=== PATIENT | female | born 1960 | race Caucasian/White ===

== ENCOUNTER → 2016-11-07 | Outpatient (CLI) | payer MEDICARE, MEDICAID | END | disposition home or self-care (01) | LOC: PCVCCLINIC 14:07 | PROVIDERS: ATTEND Internal Medicine | DX: E11.9 Type 2 diabetes mellitus without complications (principal); E66.9 Obesity, unspecified; J44.9 Chronic obstructive pulmonary disease, unspecified; Z88.0 Allergy status to penicillin; Z88.1 Allergy status to other antibiotic agents; Z88.6 Allergy status to analgesic agent; Z88.8 Allergy status to other drugs, medicaments and biological substances; Z79.899 Other long term (current) drug therapy; Z87.891 Personal history of nicotine dependence | CPT/HCPCS: 93005; G0463 ==

== ENCOUNTER → 2017-01-31 | Outpatient (CLI) | payer MEDICARE, MEDICAID ==
[~2017-01-31] MED LIST: IPRATRPIUM/ALBUTEROL 0.5/2.5MG 3 ML NEBU. ONE; REGADENOSON 0.4 MG/5 ML DISP.SYRIN. IV ONE
--- NOTE | 2017-01-31 15:29 | PCVCIMAG ---
APPROVED REPORT Study performed: 01/31/2017 12:49:35 EXAM: Comprehensive 2D, Doppler, and color-flow Echocardiogram Patient Location: Echo lab Status: routine BSA: 2.38 HR: 70 bpmBP: 132/78 mmHg Rhythm: NSR Other Information Study Quality: Adequate Risk Factors: Cardiac Risk Factors: DM Indications Palpitations Chest Pain 2D Dimensions LVEF(%): 63.53 (>50%) IVSd: 12.85 (7-11mm)LVOT Diam: 19.61 (18-24mm) LVDd: 59.85 mm PWd: 13.27 (7-11mm)Ascending Ao: 31.46 (22-36mm) LVDs: 38.84 (25-40mm) Left Atrium: 49.82 (27-40mm) LV Single Plane 4CH: 65.81 % LV Single Plane 2CH: 60.96 %Pichardo's LVEF: 63.38 % Biplane EF: 63.2 % Volumes Left Atrial Volume (Systole) Single Plane 4CH: 55.81 mLSingle Plane 2CH: 69.11 mL LA ESV Index: 30.00 mL/m2 Aortic Valve AoV Peak Joe.: 2.43 m/s AO Peak Gr.: 24.25 mmHgLVOT Max P.63 mmHg AO Mean Gr.: 11.25 mmHgLVOT Mean P.40 mmHg AO V2 Mean: 1.60 m/sLVOT Max V: 1.29 m/s AO V2 VTI: 47.13 cm GREGG (VTI): 1.94 hs3CRQB V1 VTI: 30.28 cm GREGG Vmax: 1.60 cm2 AI Vmax: 3.37 m/s AI Weston: 1.43 m/s2 AI PHT: 697.98 ms Mitral Valve E/A Ratio: 1.2 MV Decel. Time: 290.69 ms MV E Max Joe.: 1.15 m/s MV A Joe.: 0.97 m/s MV PHT: 84.30 ms IVRT: 62.28 ms TDI E/Lateral E': 10.45E/Medial E': 19.17 Medial E' Joe.: 0.06 m/s Lateral E' Joe.: 0.11 m/s Pulmonary Valve PV Peak Joe.: 1.18 m/sPV Peak Gr.: 5.60 mmHg Pulmonary Vein P Vein S: 0.56 m/sP Vein A: 0.26 m/s P Vein D: 0.53 m/sP Vein A Dur.: 124.6 msec P Vein S/D Ratio: 1.06 Tricuspid Valve TR Peak Joe.: 2.87 m/s TR Peak Gr.: 32.96 mmHg Left Ventricle Left ventricle is mildly dilated. There is normal LV segmental wall motion. Mild concentric left ventricular hypertrophy. Left ventricular systolic function is normal. The left ventricular ejection fraction is within the normal range. LVEF is 60-65%. Left ventricular filling pattern is normal for age. Right Ventricle Right ventricle is dilated. The right ventricular systolic function is normal. Atria The left atrium size is normal. Right atrium is borderline dilated. Aortic Valve The aortic valve is normal in structure. Mild aortic regurgitation. Mild aortic stenosis. GREGG 1.6 cm2 Mitral Valve The mitral valve is normal in structure. Trace to mild mitral regurgitation. No evidence of mitral valve stenosis. Tricuspid Valve The tricuspid valve is normal in structure. Mild tricuspid regurgitation. Pulmonic Valve The pulmonary valve is normal in structure. There is no pulmonic valvular regurgitation. Great Vessels The aortic root is normal in size. IVC is not well visualized. Pericardium There is no pericardial effusion. <Conclusion> Left ventricle is mildly dilated. LVEF is 60-65%. Right ventricle is dilated. The right ventricular systolic function is normal. Right atrium is borderline dilated. The aortic valve is normal in structure. Mild aortic regurgitation. Mild aortic stenosis. GREGG 1.6 cm2 The mitral valve is normal in structure. Trace to mild mitral regurgitation. The tricuspid valve is normal in structure. Mild tricuspid regurgitation. The pulmonary valve is normal in structure. The aortic root is normal in size.
--- NOTE | 2017-02-07 13:10 | PCVCIMAG ---
APPROVED REPORT Exam: Nuclear Stress Test Indication: Chest Pain, Dyspnea, Palpitations Patient Location: Out Patient Stress Nurse: Kiki Chiu RN, Mariposa Treadwell RN [place] Tech:Alexys David NMTCB Ht: 5 ft 8 in Wt: 275 lbs BSA: 2.34 m2 HR: 72 bpm BP: 144/58 mmHg BMI: 41.8 Rhythm: SR Medical History Medical History: Age, COPD, Obesity, DM Medications: Opana, Prazosin, Theophylline (held 48 hours) Allergies: Daliresp, Morphine, PCN, Sulfa, Thioridazine Pretest Chest Pain Characteristics: No chest pain Exercise History: Sedentary NM EXAM: Myocardial Perfusion REST/STRESS Imaging Protocol: Stress Tc-99m/Rest Tc-99m 2 days Resting Data Rest SPECT myocardial perfusion imaging was performed in supine position 45 minutes following the intravenous injection of 36 mCi of Tc-99m Sestamibi. Time of rest injection: 1030 Date: 02/03/2017 Pharmacologic Stress Pharmacologic stress test was performed by injecting Regadenoson 0.4 mg IV push followed by the intravenous injection of 33.9 mCi of Tc-99m Sestamibi. Time of stress injection: 1415 Date: 01/31/2017 The images were gated to evaluate regional wall motion and calculate left ventricular ejection fraction. Study Data Post stress, the left ventricular ejection was 69%.. SSS: 0 SRS: 0 SDS: 0 TID = 1.10. Perfusion There is a large area of moderately reduced uptake in the mid and apical segment of the anterior wall which is seen on the stress images as well as the resting images. This area thickens and moves normally and is most consistent with attenuation artifact. Wall Motion Normal left ventricular wall motion. Nuclear Conclusion 1. LOW RISK STUDY FOR SIGNIFICANT REVERSIBLE ISCHEMIA Interpreted by: Beverly Rowe MD Electronically Approved: 02/07/2017 13:08:21 Stress Test Details Stress Test: Pharmacologic stress testing performed using 0.4 mg of regadenoson per 5 mL given IV over 10 seconds. HR Resting HR: 72 bpmMax Heart Rate (APMHR): 163 bpm Max HR Achieved: 87 bpmTarget HR (85% APMHR): 138 bpm % of APMHR: 53 Recovery HR: 75 bpm BP Resting BP: 144/58 mmHg Max BP: 130/68 mmHg ECG Resting ECG: Sinus Rhythm Stress ECG: Sinus Rhythm Arrhythmia: None Recovery ECG: Sinus Rhythm Recovery ST Change: Non-ischemic Recovery Arrhythmia: None Clinical Reason for Termination: Completed protocol Stress Symptoms: None Exercise duration: min 55 sec Exercise capacity: 1.0 METs Stress ECG Conclusion 1. ADEQUATE RESPONSE TO IV LEXISCAN 2. INADEQUATE HEART RATE RESPONSE FOR ECG DIAGNOSIS <Conclusion> 1. ADEQUATE RESPONSE TO IV LEXISCAN 2. INADEQUATE HEART RATE RESPONSE FOR ECG DIAGNOSIS
== END | disposition home or self-care (01) ==
LOC: PCVCIMAG 12:26
PROVIDERS: ATTEND Internal Medicine
DX: I08.3 Combined rheumatic disorders of mitral, aortic and tricuspid valves (principal); J45.998 Other asthma; J44.9 Chronic obstructive pulmonary disease, unspecified; E11.9 Type 2 diabetes mellitus without complications; K52.9 Noninfective gastroenteritis and colitis, unspecified; Z72.0 Tobacco use
CPT/HCPCS: 78452; 93017; 93306; A9500; J2785; J7620